=== PATIENT | male | born 1970 | race Caucasian/White ===

== ENCOUNTER 2016-10-22 08:43 | Day surgery (SDC) | payer OTHER ==
[~2016-10-22] VITALS: Ht 170.2 cm; Wt 95.0 kg
[~2016-10-22 08:43] MED LIST: 0.9% Sodium Chloride 1,000 ML IV SCH; ESOM40CA41 PO; OMEP20TA86 PO; Sodium Chloride LOK Flush 10 mL Syringe IV PRN; fentaNYL-PF 50 mCg/mL 2 mL Inj IVPUSH PRN
[2016-10-22 09:36] VITALS: BP 136/80; PULSE 62; RESP 16; O2SAT 98
[2016-10-22 10:28] VITALS: BP 130/71; PULSE 67; RESP 14; O2SAT 98
[2016-10-22 10:36] VITALS: BP 131/71; PULSE 66; RESP 16; O2SAT 94
[2016-10-22 10:39] VITALS: BP 132/83; PULSE 69; RESP 16; O2SAT 95
--- NOTE | 2016-10-22 11:28 | ENDO ---
[address] [address] ENDOSCOPY PROCEDURE PATIENT: SIRI STEVE : 1970 MR#: [id number] ADMIT: 10/22/2016 JOB ID: [id number] DATE: 10/22/2016 TYPE OF OPERATION: 1. Esophagogastroduodenoscopy with biopsy. 2. Colonoscopy with biopsy. PREOPERATIVE DIAGNOSIS(ES): Gastroesophageal reflux disease and diarrhea. POSTOPERATIVE DIAGNOSIS(ES): 1. Mild nonerosive gastritis. 2. Normal colonoscopy status post biopsy. ANESTHESIA: 1. Fentanyl 150 mcg. 2. Versed 7 mg IV administered. COMPLICATION: None. ESTIMATED BLOOD LOSS: Minimal. DESCRIPTION OF PROCEDURE: After risks and benefits were explained to the patient, informed consent was obtained. After anesthesia administered, upper endoscope was then inserted into the mouth, intubated into esophagus, stomach, second portion of duodenum. Mucosa carefully examined. After the procedure was done, the scope withdrawn and procedure terminated. Colonoscope was then inserted per rectum to the terminal ileum and mucosa carefully examined. Prep of the patient was fair. After the procedure was done, the scope withdrawn and procedure terminated. FINDINGS: Upon inspection of the esophagus, the esophagus is normal without masses, ulcers, lesions. Z-line located 40 cm from incisors. Upon entering the stomach, there was mild nonerosive gastritis. No masses, ulcers, lesions were seen. Retroflexion was normal. Duodenal bulb, first and second portion were normal. Biopsy of the duodenum and antrum of the stomach and distal esophagus. Upon inspection of the anus, no masses, hemorrhoids, ulcers or fissures that were seen. Throughout the entire examination, there were no polyps, masses or lesions. Biopsies taken at terminal ileum and random colon. Retroflexion was normal. IMPRESSIONS: 1. Normal colonoscopy status post biopsy. 2. Mild nonerosive gastritis. RECOMMENDATION: Await pathology results. Followup in GI clinic as needed.
--- NOTE | 2016-10-23 13:26 | PATH ---
SURGICAL PATHOLOGY Attending Physician:Vincenzo Diaz MD CASE STATUS: Signed Out PATIENT NAME: SIRI STEVE PID: [id number] : 1970 DATE COLLECTED:10/22/2016 00:00 SPECIMEN: 1: Duodenum, Biopsy 2: Stomach, Antrum, Biopsy 3: Gastric, Biopsy 4: Esophagus, Biopsy 5: Ileum, Biopsy 6: Colon, Biopsy CLINICAL HISTORY: 1). DUODENUM 2). GASTRIC ANTRUM 3). GASTRIC BODY 4). DISTAL ESOPHAGUS 5). TERMINAL ILEUM 6). RANDOM COLON FINAL DIAGNOSIS: 1.DUODENUM BIOPSY: FRAGMENTS OF NORMAL-APPEARING DUODENUM MUCOSA. Normal delicate mucosal villi present. Negative for significant inflammation, dysplasia and malignancy. 2.GASTRIC ANTRUM BIOPSY: ANTRAL MUCOSA WITH HYPEREMIA, BUT NEGATIVE FOR SIGNIFICANT INFLAMMATION. Negative for evidence of Helicobacter. Negative for intestinal metaplasia. Negative for dysplasia and malignancy. 3.GASTRIC BODY BIOPSY: GASTRIC FUNDIC MUCOSA WITH HYPEREMIA, BUT WITHOUT ASSOCIATED SIGNIFICANT INFLAMMATION. Negative for evidence of Helicobacter. Negative for intestinal metaplasia. Negative for dysplasia and malignancy. 4.DISTAL ESOPHAGUS BIOPSY: FRAGMENTS OF SQUAMOUS MUCOSA AND GASTRIC OXYNTIC-TYPE MUCOSA NEGATIVE FOR SPECIALIZED METAPLASIA OF PRINCE' S-TYPE ESOPHAGUS. Negative for dysplasia and malignancy. Negative for squamous intraepithelial eosinophils. 5.BIOPSY, TERMINAL ILEUM: FRAGMENTS OF NORMAL-APPEARING TERMINAL ILEUM MUCOSA. Negative for granulomas. Negative for significant inflammation, dysplasia and malignancy. 6.RANDOM COLON BIOPSIES: TWO SMALL FOCI OF MUCOSAL SCARRING CONSISTENT WITH PREVIOUS FOCAL MUCOSAL INJURY. ALL OTHER FRAGMENTS APPEAR NORMAL WITH NO EVIDENCE OF SIGNIFICANT ARCHITECTURAL DISTORTION, INFLAMMATION, DYSPLASIA OR MALIGNANCY. ICD10 S36.508 GROSS DESCRIPTION: The specimen is received in six formalin filled containers labeled with the patient's name. 1). The specimen is sublabeled "duodenum" and consists of 2 portions of tissue which aggregate to 0.3 x 0.3 x 0.2 CM. The specimen is entirely submitted in cassette 1A. 2). The specimen is sublabeled "gastric antrum" and consists of 2 portions of tissue which aggregate to 0.3 x 0.3 x 0.2 CM. The specimen is entirely submitted in cassette 2A. 3). The specimen is sublabeled "gastric body" and consists of a 0.4 x 0.3 x 0.2 CM portion of tissue which is entirely submitted in cassette 3A. 4). The specimen is sublabeled "distal esophagus" and consists of 2 portions of tissue which aggregate to 0.3 x 0.3 x 0.2 CM. The specimen is entirely submitted in cassette 4A. 5). The specimen is sublabeled "terminal ileum" and consists of 2 portions of tissue which aggregate to 0.3 x 0.3 x 0.2 CM. The specimen is entirely submitted in cassette 5A. 6). The specimen is sublabeled "random colon" and consists of 5 portions of tissue which aggregate to 0.5 x 0.4 x 0.2 CM. The specimen is entirely submitted in cassette 6A. 10/23/2016 DAC MICRO DESCRIPTION: See diagnosis. ICD-9 CODES: CPT CODES: 1: 72115 2: 43613 3: 46142 4: 34693 5: 47464 6: 11576 Electronically Signed Out Josue Miller MD [facility]ology [facility] [address], [place] [address] Technical component performed at [facility], [facility] [address], [place], [address]
== END 2016-10-22 23:59 | disposition home or self-care (01) ==
LOC: END 08:43
PROVIDERS: ATTEND Internal Medicine Gastroenterology
DX: R19.7 Diarrhea, unspecified (principal); K59.00 Constipation, unspecified; K29.70 Gastritis, unspecified, without bleeding; K21.9 Gastro-esophageal reflux disease without esophagitis
CPT/HCPCS: 43239; 45380; 99153; G0500; J7030